=== PATIENT | female | born 1950 | race Caucasian/White ===

== ENCOUNTER 2021-04-23 23:57 | Inpatient (IN) ==
[2021-04-24] MEDS ORDERED: DILTIAZEM 25 MG/5 ML VIAL IV ONE (00:21)
[2021-04-24] MEDS ORDERED: ASPIRIN 325 MG TABLET ONE (00:24)
[2021-04-24] MEDS ORDERED: DILTIAZEM 50 MG/10 ML VIAL IV STA ×2 (00:30→00:33)
[2021-04-24] MEDS ORDERED: ASPIRIN 325 MG TABLET PO STA (00:31)
[2021-04-24 00:55] LABS: PT Patient Result 10.7 SECS (10.5-12.0); Partial Thromboplastin Time 27.6 SECS (23.9-33.8)
[2021-04-24 01:12] LABS: Albumin 3.8 G/DL (3.4-5.0); Bilirubin,Total 0.6 MG/DL (0.20-1.00); Calcium 9.5 MG/DL (8.5-10.1); Osmolality,Calculated 285.1 MOS/KG (273-304); Total Protein 6.6 G/DL (6.4-8.2)
[2021-04-24 01:13] LABS: Basophils % 0.5 % (0.0-0.8); Eosinophils # 0.1 10*3/uL (0.0-0.87); Eosinophils % 0.9 % (0.00-10.9); Hematocrit 43.2 VOL% (35.7-47.0); Hemoglobin 14.2 GM/DL (12.0-16.0); Immature Granulocytes % 0.5 %; Immature Granulocytes Absolute 0.03 #; Lymphocytes # 2.2 10*3/uL (1.4-4.0); Lymphocytes % 34.2 % (21.3-54.2); Mean Corpuscular HGB Conc 32.9 GM/DL (32-36); Mean Corpuscular Volume 92.3 FL (87-102); Mean Platelet Volume 11.4 FL (9.6-12.0); Monocytes % 6.8 % (1.7-12.7); Neutrophils % 57.1 % (38.7-73.9); Platelet Count 206 T/CUMM (130-400); Red Blood Count 4.68 MC/CUMM (3.8-5.5); Red Cell Distribution Width 13.7 % (9.3-17.3); White Blood Count 6.5 T/CUMM (4-12)
[2021-04-24] MEDS ORDERED: DILTIAZEM INJ 100 MG in SODIUM CHLORIDE 0.9% 100 ML IV SCH (01:30)
[2021-04-24 02:20] LABS: Free T4 (Free Thyroxine) 1.06 NG/DL (0.76-1.46); Thyroid Stimulating Hormone 1.44 uIU/ml (0.358-3.74)
[2021-04-24] MEDS ORDERED: ONDANSETRON 4 MG/2 ML VIAL IV PRN (02:54)
[2021-04-24] MEDS ORDERED: ACETAMINOPHEN 325 MG TABLET PO PRN (02:54)
[2021-04-24] MEDS ORDERED: GLUCAGON 1 MG VIAL IM PRN (02:54)
[2021-04-24] MEDS ORDERED: PROMETHAZINE 25 MG TABLET PO PRN (02:54)
[2021-04-24] MEDS ORDERED: DEXTROSE 50% 25 GM/50 ML VIAL IV PRN (02:54)
[2021-04-24] MEDS ORDERED: oxyCODONE/ACETAMINOPHEN 5-325 MG TABLET PO PRN (03:01)
[2021-04-24 03:35] LABS: Bacteria,Urine Occasional /HPF (Few); Bilirubin,Urine Negative (Negative); Blood, Urine Negative (Negative); Glucose,Urine (UA) Negative (Negative); Ketones,Urine Negative (Negative); Nitrite,Urine Negative (Negative); Protein,Urine Negative; RBC,Urine 1 /HPF (0-4); Urine Appearance CLEAR (Clear); Urine Color Colorless (Yellow); Urine Specific Gravity 1.003 (1.001-1.035); Urine Urobilinogen < 2.0 EU/DL (0.2-1.0)
[2021-04-24 04:16] LABS: Albumin 3.2 G/DL (3.4-5.0); Bilirubin,Total 0.5 MG/DL (0.20-1.00); Calcium 8.8 MG/DL (8.5-10.1); Osmolality,Calculated 288.7 MOS/KG (273-304); Risk Ratio 3.54; Total Protein 5.9 G/DL (6.4-8.2); VLDL Cholesterol 18.2 MG/DL
[2021-04-24] MEDS: ENOXAPARIN 100 MG/ML SYRINGE SUBCUT SCH ×2 (05:23→15:50)
[2021-04-24] MEDS ORDERED: MAGNESIUM SULF RIDER 2 GM/50 ML PREMIX IV ONE (07:33)
[2021-04-24] MEDS ORDERED: ASCORBIC ACID 500 MG TABLET PO SCH (09:00)
[2021-04-24] MEDS: ASCORBIC ACID 500 MG TABLET PO SCH ×2 (09:09→21:42)
[2021-04-24] MEDS: PANTOPRAZOLE 40 MG TABLET PO SCH (09:09)
[2021-04-24] MEDS: CYANOCOBALAMIN 500 MCG TABLET PO SCH (09:09)
[2021-04-24] MEDS: SPIRONOLACTONE 25 MG TABLET PO SCH ×2 (09:09→21:42)
[2021-04-24] MEDS: ASPIRIN CHEW 81 MG TABLET PO SCH (09:09)
[2021-04-24] MEDS: GABAPENTIN 300 MG CAPSULE PO SCH ×4 (09:10→21:41)
[2021-04-24] MEDS: PROPRANOLOL 20 MG TABLET PO SCH ×2 (09:10→21:42)
[2021-04-24] MEDS ORDERED: AMIODARONE INJ 150 MG in DEXTROSE 5% 100 ML IV ONE (09:19)
[2021-04-24] MEDS ORDERED: AMIODARONE INJ 450 MG in DEXTROSE 5% 241 ML IV SCH ×2 (09:30→15:30)
[2021-04-24] MEDS: SODIUM CHLORIDE 0.9% 1,000 ML IV SCH (10:35)
[2021-04-25] MEDS: ENOXAPARIN 100 MG/ML SYRINGE SUBCUT SCH (05:52)
[2021-04-25] MEDS: SODIUM CHLORIDE 0.9% 1,000 ML IV SCH ×2 (05:56)
[2021-04-25] MEDS ORDERED: AMIODARONE 200 MG TABLET PO SCH (09:00)
[2021-04-25] MEDS: PANTOPRAZOLE 40 MG TABLET PO SCH (09:28)
[2021-04-25] MEDS: ASCORBIC ACID 500 MG TABLET PO SCH (09:28)
[2021-04-25] MEDS: CYANOCOBALAMIN 500 MCG TABLET PO SCH (09:28)
[2021-04-25] MEDS: SPIRONOLACTONE 25 MG TABLET PO SCH (09:29)
[2021-04-25] MEDS: GABAPENTIN 300 MG CAPSULE PO SCH ×2 (09:29→14:11)
[2021-04-25] MEDS: PROPRANOLOL 20 MG TABLET PO SCH (09:29)
[2021-04-25] MEDS: ASPIRIN CHEW 81 MG TABLET PO SCH (09:29)
[2021-04-25 12:00] VITALS: BP 121/60
[2021-04-25] MEDS ORDERED: APIXABAN 5 MG TABLET PO SCH (17:00)
== END 2021-04-25 16:10 | disposition home or self-care (01) | DRG 309 ==
LOC: N.ED 23:57 → N.EDINP 04-24 02:53 → N.TELEN 04-24 04:30
PROVIDERS: ADMIT Internal Medicine Geriatric Medicine; ATTEND Internal Medicine Geriatric Medicine